=== PATIENT | female | born 1950 | race Caucasian/White ===

== ENCOUNTER → 2020-02-07 | Outpatient (CLI) | payer MEDICARE ==
--- NOTE | 2020-02-07 10:19 | RAD ---
INDICATION: Osteoporosis screening. Postmenopausal evaluation COMPARISON: None. TECHNIQUE: Bone densitometry was performed through the lumbar spine and proximal femur. FINDINGS: Lumbar Spine: BMD: 0.98 T-Score: -1.6 Scoliotic curvature with degenerative changes Proximal Femur: BMD: 0.67 T-Score: -2.2 IMPRESSION: 1. Lumbar spine falls within the osteopenic range. 2. Proximal femur falls within the osteopenic range. Electronically signed by: Hayes Tovar MD (02/07/2020 10:16 AM) [id number]
--- NOTE | 2020-02-22 11:18 | RAD ---
BILATERAL SCREENING MAMMOGRAM, 3-D History: Routine screening. Comparison: Performed at outside facilities. None available at this time. Technique: MLO and CC digital tomosynthesis (3D) images obtained. Radiologist reviewed these images on dedicated workstation. Findings: Breast Tissue Density B : There are scattered areas of fibroglandular density. There are no dominant masses, suspicious microcalcifications, or architectural distortion. Small foci of asymmetry involving the anterior right retroareolar location are present. IMPRESSION: Spot compression imaging of right breast asymmetries is recommended. Ultrasound of the right breast may be needed. BI-RADS Category 0: Incomplete: Need additional imaging evaluation. The images were reviewed with computer-aided detection. Patient information is entered into reminder system with a target due date for the next screening mammogram. Mammography is the most sensitive method for finding small breast cancers, but it does not detect them all and is not a substitute for careful clinical examination. A negative mammogram does not negate a clinically suspicious finding and should not result in delay in biopsying a clinically suspicious abnormality. "Our facility is accredited by the [employer] Mammography Program." Electronically signed by: Yonas Christensen MD (02/22/2020 11:15 AM) [facility]
== END ==
LOC: MAMMO 09:03
PROVIDERS: ATTEND Obstetrics & Gynecology
DX: Z12.31 Encounter for screening mammogram for malignant neoplasm of breast (principal); Z78.0 Asymptomatic menopausal state; M85.88 Other specified disorders of bone density and structure, other site; M47.816 Spondylosis without myelopathy or radiculopathy, lumbar region; M43.8X6 Other specified deforming dorsopathies, lumbar region
CPT/HCPCS: 77063; 77067; 77080

== ENCOUNTER → 2020-04-17 | Outpatient (CLI) | payer MEDICARE ==
--- NOTE | 2020-04-18 10:39 | RAD ---
Examination: 1. Right digital diagnostic mammogram. 2. Right targeted breast ultrasound INDICATION: Screening recall for right breast asymmetry. COMPARISON: Bilateral mammogram of 02/07/2020 TECHNIQUE: Right ML view and spot compression right cc view were obtained. Thereafter, targeted ultra sound of the subareolar and slightly superior right breast was performed. FINDINGS: Heterogeneously dense breast parenchyma. Focal asymmetry in the central slightly superior right breast persists on additional mammographic vie ws. It is dense, irregular, and represents the dominant mammographic finding in the central right pilo ast. Targeted ultrasound of the right breast identifies multiple cysts in the right breast but no def inite sonographic correlate to the persistent focal asymmetry in the right breast. IMPRESSION: Focal asymmetry in the right breast is suspicious. BI-RADS Category 4 Findings suspicious for malignancy. Recommend stereotactic right breast biopsy. Patient notified prior to her discharge from the imaging suite. Report telephoned to the patient's referring physician Valentín Borden's office where [facility] took the report at 10:35 AM on 04/18/2020 on her behalf. Electronically signed by: Angela De Santiago MD (04/18/2020 10:37 AM) [id number]
== END ==
LOC: MAMMO 13:40
PROVIDERS: ATTEND Obstetrics & Gynecology
DX: N60.01 Solitary cyst of right breast (principal); R92.2 Inconclusive mammogram
CPT/HCPCS: 76641; 77065

== ENCOUNTER → 2021-01-07 | Outpatient (CLI) | payer MEDICARE ==
--- NOTE | 2021-01-07 11:05 | RAD ---
EXAM: Chest, 2 views. HISTORY: Pneumonia. COMPARISON: None. FINDINGS: 2 views of the chest are obtained. There is no infiltrate, pleural effusion or pneumothorax . The heart is normal in size. There is mild scoliosis. There are few calcified granulomas. IMPRESSION: No acute pulmonary finding. Electronically signed by: Loreto Padilla MD (01/07/2021 11:02 AM) [id number]
== END ==
LOC: RAD 10:32
PROVIDERS: ATTEND Family Medicine
DX: R06.02 Shortness of breath (principal); M41.84 Other forms of scoliosis, thoracic region; J84.10 Pulmonary fibrosis, unspecified
CPT/HCPCS: 71046

== ENCOUNTER → 2021-02-10 | Outpatient (CLI) | payer MEDICARE ==
--- NOTE | 2021-02-10 14:01 | RAD ---
EXAMINATION: MG DIGITAL UNILAT DIAGNOSTIC MAMMO WITH MINDI CLINICAL HISTORY: 6 month follow-up right breast biopsy with benign pathology TECHNIQUE: Digital craniocaudal and mediolateral oblique views of the right breast obtained with 3-D tomosynthesis. COMPARISON: 04/17/2020, 02/07/2020 BREAST COMPOSITION: The breasts are heterogeneously dense, which may obscure small masses. FINDINGS: Small mass in the superior right breast appears essentially unchanged with interval placement of junie cent biopsy clip marker. No evidence of new suspicious mass, calcifications, or areas of architectura l distortion. IMPRESSION: No mammographic evidence of malignancy. BI-RADS ASSESSMENT: Category 2: Benign RECOMMENDATION: Return for bilateral screening mammogram in 6 months. PQRS compliance statement - Patient information was entered into a reminder system with a target due date for the next mammogram. "Our facility is accredited by the [employer] Mammography Program." Electronically signed by: Michael Ramirez DO (02/10/2021 1:58 PM) [id number]
== END ==
LOC: MAMMO 12:55
PROVIDERS: ATTEND Nurse Practitioner
DX: R92.8 Other abnormal and inconclusive findings on diagnostic imaging of breast (principal); Z98.890 Other specified postprocedural states
CPT/HCPCS: 77065; G0279; 77061

== ENCOUNTER → 2021-07-22 | Outpatient (CLI) | payer MEDICARE ==
--- NOTE | 2021-07-22 11:19 | RAD ---
EXAM: DUAL ENERGY X-RAY ABSORPTIOMETRY (DEXA). HISTORY: Postmenopausal screening. FINDINGS: The lowest measured T-score is -2.2 in the right femoral neck, based on a bone mineral dens ity of 0.669 g/cm^2. Refer to the worksheets for full detail. The lowest T-score on the comparison exam performed 02/07/2020 was also -2.2.. IMPRESSION: 1. Low bone mass. Bone mineral density yields a T-score between -1.0 and -2.5. Fracture risk is incre ased. 2. FRAX report: Not calculated. METHODOLOGY: Dual energy x-ray absorptiometry was performed to measure bone mineral density. The foll owing analysis is based on the 2019 Official Positions of the International Society for Clinical Dens itometry: Measurements of the hips and the average of L1-L4 are preferred. When the spine and/or hip cannot be feasibly measured or interpreted, or in the setting of hyperparathyroidism, distal radial bone minera l density may be measured. The lumbar spine T-score is based on the average bone mineral density of L1-L4. In the setting of art ifact or anatomic abnormality, some lumbar levels may be excluded, and the remaining levels used for calculation. A single lumbar level is not used for diagnosis, and if only a single level is available for assessment, another anatomic site will be used to assign a diagnosis. The hip T-score is based on the bone mineral density measurement of the femoral neck or total proxima l femur of either side, whichever is lowest. Bilateral mean values are not used for diagnosis. The forearm T-score is derived from 33% of the distal radius of the nondominant forearm. Electronically signed by: Loreto Padilla MD (07/22/2021 11:16 AM) [id number]
--- NOTE | 2021-07-22 16:44 | RAD ---
Bilateral digital screening 2-D and 3-D (tomosynthesis) mammogram: Reason for examination: Routine screening.. History of benign biopsy of small mass in the right retro areolar/12:00 position. Comparison is made to previous study dated 02/07/2020, 02/10/2021, 04/17/2020. Bilateral mammograms in CC and oblique projections were obtained with 2-D imaging and 3-D tomosynthes is imaging and reviewed on the workstation. Interpretation was made with the benefit of CAD. Findings: Breast density: Category C. The breasts are heterogeneously dense, which may obscure small masses. There are no suspicious masses, malignant appearing calcifications or architectural distortion. Again seen is a biopsy marker in the retroareolar/12:00 position right breast. There is tiny area of nodul arity adjacent to the biopsy marker which is stable. Impression: No evidence of malignancy. ASSESSMENT: BI-RADS 2. Benign finding. Recommendations: Routine screening mammograms. This patient's information has been entered into a reminder system for the patient to be notified wit h the results of her examination and a target date for the next mammogram. Your patient's mammogram demonstrates that she has dense breast tissue (breast density category C or D), which could hide abnormalities, and if she has other risk factors for breast cancer that have bee n identified, she might benefit from supplemental screening tests that may be suggested by you as her ordering physician. Dense breast tissue, in and of itself, is a relatively common condition. Therefo re, this information is not provided to cause undue concern, but rather to raise your awareness and t o promote discussion with your patient regarding the presence of other risk factors, in addition to d ense breast tissue. Electronically signed by: Katharine Springer MD (07/22/2021 4:42 PM) [id number]
== END ==
LOC: MAMMO 10:18
PROVIDERS: ATTEND Obstetrics & Gynecology
DX: Z12.31 Encounter for screening mammogram for malignant neoplasm of breast (principal); Z01.419 Encounter for gynecological examination (general) (routine) without abnormal findings; M85.88 Other specified disorders of bone density and structure, other site
CPT/HCPCS: 77063; 77067; 77080